=== PATIENT | female | born 1935 | race Caucasian/White ===

== ENCOUNTER 2021-07-16 07:11 | Outpatient (RCR) | payer MEDICARE, BC, SELFPAY ==
[2021-07-16] VITALS (10 sets, daily range): BP systolic 102–131; BP diastolic 45–92; PULSE 75–94; RESP 12–22; TEMP 36.2–36.4; O2SAT 94–100
[2021-07-16 07:55] LABS: Hematocrit 27.1 % (37.0-47.0); Hemoglobin 7.5 g/dL (12.0-15.0)
== END 2021-10-14 23:59 | disposition home or self-care (01) ==
LOC: ANHCPCTRAN 07:11
PROVIDERS: PCP Family Medicine; Visit Provider Nurse Practitioner Family
DX: D50.9 Iron deficiency anemia, unspecified (principal)
CPT/HCPCS: 36415; 36430; 85014; 85018; 86850; 86900; 86901; 86920; J7050; P9016

== ENCOUNTER 2023-07-08 15:30 | Inpatient (IN) | payer MEDICARE, SELFPAY ==
[2023-07-08] VITALS (29 sets, daily range): BP systolic 90–123; BP diastolic 51–97; PULSE 96–117; RESP 12–25; TEMP 36.1–36.2; O2SAT 94–100
--- NOTE | ~2023-07-08 | XR_ITS ---
EXAMINATION: XR barium swallow modified DATE: 07/12/2023 10:26 INDICATION: Choking. TECHNIQUE: The patient was given barium-containing material of multiple consistencies to swallow by t nancy speech pathologist while I performed fluoroscopy. Fluoroscopy exposure time was 2.4 minutes. The n umber of fluoroscopy images saved to the PACS was 1. Dose-area product was 1.538 Gy-cm^2. FINDINGS: There is reduced labial seal/lip tension. There is reduced lingual movement. There is reduced larynge al elevation and reduced tongue base retraction. There is laryngeal penetration with thin liquids and nectar thick liquids. IMPRESSION: 1. Laryngeal penetration with thin liquids and nectar thick liquids. 2. Please refer to the speech therapy report for recommendations. Reviewed, dictated and finalized at location A.
--- NOTE | ~2023-07-08 | CT_ITS ---
EXAMINATION: CT brain wo con DATE: 07/08/2023 17:44 INDICATION: Altered mental state. Weakness. TECHNIQUE: Computed tomography (CT) of the head was performed without intravenous contrast. The mA wa s adjusted according to patient size. Iterative reconstruction technique was employed. Exam dose: 60 5.33 mGy-cm total exam DLP. COMPARISON: None FINDINGS: There is central and cortical cerebral atrophy in addition to cerebellar atrophy. Prominent bilateral carotid siphon internal carotid artery calcifications. Lesser vertebral basilar a rterial calcification. There is nonspecific diminished attenuation of the cerebral white matter, which may be due to chronic small vessel ischemic changes. No intracranial mass lesion or hemorrhage, midline shift or mass effect. No subdural or epidural hematoma is detected. The included paranasal sinuses and mastoid air cells are normally developed and aerated. No fracture or bone destruction of the cranial vault. IMPRESSION: Cerebral and cerebellar atrophy Cerebral atherosclerosis and chronic small vessel ischemic changes of the cerebral white matter No skull fracture or acute intracranial finding Reviewed, dictated and finalized at Location [facility]. Reviewed, dictated and finalized at location A. IMPRESSION: Cerebral and cerebellar atrophy Cerebral atherosclerosis and chronic small vessel ischemic changes of the cereb ral white matter No skull fracture or acute intracranial finding
--- NOTE | ~2023-07-08 | MR_ITS ---
EXAMINATION: MR brain/brain stem wo con DATE: 07/12/2023 11:52 INDICATION: Dysphagia. TECHNIQUE: Magnetic resonance imaging (MRI) of the brain and brainstem was performed without intraven ous contrast. COMPARISON: Head CT 07/08/2023 FINDINGS: There are scattered areas of nonspecific increased T2-weighted signal intensity in the cere bral white matter and [place]. There is no intracranial hemorrhage, acute infarction, or abnormal intrac ranial mass lesion. The ventricles are normal in size. The mastoid air cells are normal. There is mil d mucosal thickening in the ethmoid sinuses. There are likely changes of ocular lens replacement surg eries. IMPRESSION: 1. Extensive nonspecific cerebral white matter disease and pontine disease, which likely represents c hronic small vessel ischemic disease. Reviewed, dictated and finalized at location A. IMPRESSION: 1. Extensive nonspecific cerebral white matter disease and pontine disease, whi ch likely represents chronic small vessel ischemic disease.
--- NOTE | ~2023-07-08 | XR_ITS ---
XR chest PICC line DATE: 07/08/2023 19:43 INDICATION: TECHNIQUE: PICC line placement COMPARISON: Portable AP chest on 07/08/2023 1923 hours FINDINGS: Intravenous catheter is noted in the right upper extremity, terminating near the right axil sen area. Normal heart size. Aortic calcification and mild unfolding. Mild bilateral pulmonary hyperinflation. No pulmonary infiltrate or consolidation or pleural effusion . Bilateral apical mild capping and calcification. No apparent pneumothorax. IMPRESSION: No active cardiopulmonary disease Aortic atherosclerosis Osteopenia Right upper extremity intravenous catheter Reviewed, dictated and finalized at [facility]. Reviewed, dictated and finalized at location A.
--- NOTE | 2023-07-08 15:54 | ECG_ITS ---
Measurements Intervals [place] Rate: 110 P: 70 MI: 168 QRS: 67 QRSD: 77 T: 77 QT: 326 QTc: 441 Interpretive Statements SINUS TACHYCARDIA DELAYED PRECORDIAL R/S TRANSITION BASELINE WANDER- V6 ABNORMAL ECG NO PREVIOUS ECG AVAILABLE FOR COMPARISON Electronically Signed On 07-08-2023 16:06:52 CDT by Neymar Russo D.O.
--- NOTE | 2023-07-08 16:22 | PC.NURSE ---
changed pt depends prior to straight cath and pt had scant dark stool with no blood visible. during straight cath intervention pt began having yellow liquid bowel movements that were then cleaned up. incontinence to bowel and bladder.
--- NOTE | 2023-07-08 16:31 | PC.NURSE ---
unable to gain iv access after multiple attempts. charge nurse uma gallagher called [facility] in phlebotomy to assist with iv attempt.
--- NOTE | 2023-07-08 16:48 | PC.NURSE ---
updated pt family member, Cath-niece, with permission from pt.
[2023-07-08 17:01] LABS: Appearance Urine Turbid (Clear); Bacteria Urine 4+ /hpf; Bilirubin Urine Negative (Negative); Blood Urine 2+ (Negative); Color Urine Yellow (Yellow); Glucose Urine UA Trace mg/dL (Negative); Ketones Urine Trace mg/dL (Negative); Leukocyte Esterase Ur 3+ LEU/UL (Negative); Need Manual Microscopic Reviewed; Nitrate Urine Negative (Negative); Non Pathogenic Casts >20; Protein Urine 3+ mg/dL (Negative); RBC Urine 21-50 /hpf (0-2); Specific Grav Ur 1.015 (1.001-1.035); Squamous Epithelial Cell Urine Many /hpf (Few); WBC Clumps Urine Present /HPF; WBC Urine >100 /hpf
[2023-07-08 17:02] LABS: Add Urine Microscopic? YES
--- NOTE | 2023-07-08 17:14 | ED.AMS ---
HPI - Altered Mental Status General Chief Complaint: Altered Mental Status Stated Complaint: AMS Time Seen by Provider: 07/08/23 15:40 History of Present Illness HPI narrative: 87-year-old female presented the emergency department for evaluation of altered mental status. Patient denies any complaints at this time. Patient was tachycardic on arrival. Related Data Home Medications Medication Instructions Recorded Confirmed B-complex with vitamin C 1 tablet PO DAILY 01/14/22 01/14/22 ascorbic acid (vitamin C) 500 mg 500 mg PO DAILY 01/14/22 01/14/22 capsule,extended release fenofibrate 54 mg tablet 54 mg PO DAILY 01/14/22 01/14/22 ferrous sulfate 325 mg (65 mg 325 mg PO BID 01/14/22 01/14/22 iron) tablet folic acid 1 mg tablet 1 mg PO DAILY 01/14/22 01/14/22 melatonin 3 mg capsule 3 mg PO QHS 01/14/22 01/14/22 metoclopramide HCl 10 mg tablet 10 mg PO Q6H PRN 01/14/22 01/14/22 metoprolol succinate 25 mg 12.5 mg PO BID 01/14/22 01/14/22 tablet,extended release 24 hr pantoprazole 40 mg tablet,delayed 40 mg PO QAM 01/14/22 01/14/22 release polyethylene glycol 3350 17 17 g PO DAILY 01/14/22 01/14/22 gram/dose oral powder pravastatin 80 mg tablet 80 mg PO DAILY 01/14/22 01/14/22 warfarin 2.5 mg tablet 2.5 mg PO 3XW 01/14/22 01/14/22 Allergies Allergy/AdvReac Type Severity Reaction Status Date / Time No Known Allergies Allergy Verified 01/14/22 10:49 Review of Systems Review of Systems: ROS unobtainable: Yes unobtainable due to medical condition PMFSH Past Medical History Medical History Bleeding on Coumadin Forgetfulness Frailty syndrome in geriatric patient Gastric ulcer History of gastrointestinal bleeding Social History Social History Smoking status: Never smoker Alcohol intake: never Substance use: never Exam Narrative: APPEARANCE: Well appearing, somnolent HEAD: normocephalic, atraumatic. EYES: PERRLA/EOMI, conjunctivae clear. NOSE: Normal no drainage EARS:TMS clear with good light reflex. THROAT: Pharynx clear, no exudate. NECK: Supple. No adenopathy, no masses. RESPIRATORY: Airway patent, respirations nonlabored. Clear to auscultation bilaterally, no rales, rhonchi, wheezing. CARDIOVASCULAR: Regular rate and rhythm without murmurs rubs or gallops. ABDOMINAL: Soft, nontender, nondistended, normal bowel sounds MUSCULOSKELETAL: Moves all extremities. Strength/ROM intact, No edema, No calf tenderness. NEURO: Alert. Cranial nerves II through XII intact. Grossly intact SKIN: Warm, dry. Normal Color Course Course Emergency Course: 87-year-old female presented to ED for evaluation of altered mental status. Patient's head CT showed no acute findings. Patient was afebrile with no leukocytosis and a stable hemoglobin. No significant abnormalities on her CMP UA was significant for urinary tract infection and patient was started on IV Rocephin. Patient influenza RSV and COVID was negative. Patient had difficulty getting IV access but we were able to have a midline established. Case was discussed with the hospitalist patient was accepted for admission. Vital Signs Vital signs: Vital Signs Pulse Rate 112 H 07/08/23 15:32 Respiratory Rate 19 07/08/23 15:32 Blood Pressure 118/65 07/08/23 15:32 Pulse Oximetry 98 07/08/23 15:32 Oxygen Delivery Room Air 07/08/23 15:32 Temperature 97.0 F L 07/08/23 15:52 Pulse Rate 106 H 07/08/23 18:28 Respiratory Rate 13 07/08/23 18:28 Blood Pressure 123/65 07/08/23 18:28 Pulse Oximetry 98 07/08/23 18:28 Oxygen Delivery Room Air 07/08/23 16:42 MDM - Altered Mental Status Differential Diagnosis Differential diagnosis: Likely altered mental status, delirium, dementia, hypoglycemia and subarachnoid hemorrhage Lab Data Attestation: I reviewed the patient's lab results. 07/08/23 17:34 07/08/23 17
[2023-07-08 17:42] LABS: Basophils Percent Auto 0.4 % (0.2-1.2); Eosinophils Absolute Auto 0.1 K/mm3 (0-0.3); Eosinophils Percent Auto 0.7 % (0-4.4); Hematocrit 36.6 % (37.0-47.0); Hemoglobin 12.2 g/dL (12.0-15.0); Immature Granulocyte Absolute 0.03 K/mm3 (0.00-0.031); Immature Granulocyte Percent A 0.3 % (0-0.5); Lymphocytes Absolute Auto 1.97 K/mm3 (0.9-3.2); Lymphocytes Percent Auto 20.6 % (18.3-44.2); Mean Corpuscular HGB Conc 33.3 g/dl (32-36); Mean Corpuscular Hemoglobin 30.5 pg (26-34); Mean Corpuscular Volume 91.5 fl (80-100); Monocytes Absolute Auto 1.6 K/mm3 (0.1-0.6); Monocytes Percent Auto 17.1 % (2.6-8.5); Neutrophils Absolute Auto 5.8 K/mm3 (1.3-6.7); Neutrophils Percent Auto 60.9 % (45.5-73.1); Platelet Count Result 274 k/mm3 (150-375); Red Cell Distribution Width 15.3 % (11.5-14.5); White Blood Count 9.6 K/mm3 (4.5-10.0)
[2023-07-08 17:51] LABS: Alanine Aminotransferase 9 U/L (6-35); Albumin Level 2.5 g/dL (3.5-5.1); Alkaline Phosphatase 76 U/L (38-126); Anion Gap 4 mmol/L (8-16); Aspartate Amino Transferase 20 U/L (14-36); Bilirubin,Total 0.6 mg/dL (0.2-1.3); Blood Urea Nitrogen 11 mg/dL (7-17); Calcium 7.9 mg/dL (8.4-10.2); Carbon Dioxide 23 mmol/L (22-30); Chloride 101 mmol/L (98-107); Estimated CRCL calculation 47 ml/min; Estimated Glomerular Filt Rate > 60; Glucose 82 mg/dL (65-110); Potassium 3.9 mmol/L (3.4-5.0); Sodium 128 mmol/L (137-145)
[2023-07-08 17:53] LABS: INR 3.4; Prothrombin Time 37.2 Seconds (11.1-14.7)
[2023-07-08 17:54] LABS: Partial Thromboplastin Time 63.6 SECONDS (22.3-36.8)
[2023-07-08 18:13] LABS: Influenza A QL RT-PCR Negative (Negative); Influenza B QL RT-PCR Negative (Negative); RSV RNA, RT-PCR Negative (Negative); SARS-CoV-2 RNA PCR Negative (Negative)
[2023-07-08 18:25] LABS: Lactic Acid Reflex 1.9 mmol/L (0.7-2.0)
--- NOTE | 2023-07-08 18:39 | PC.NURSE ---
YANICK steele looking for midline access @[id number].
--- NOTE | 2023-07-08 19:09 | PM.IMHP ---
H&P: HPI History of Present Illness Date/Time: 07/08/23 19:09 Chief Complaint: Mental Status Change Narrative: Patient was seen in the emergency room. 87 years old female was admitted through the emergency room with complaints of a mental status change. Patient was sent from detention for the evaluation of mental status change. Patient is slightly confused otherwise denies shortness of breath and chest pain. Patient plan of having generalized weakness. No abdominal pain, nausea, no vomiting. Mood stable. In the ER PICC line was placed. Blood and urine culture were ordered. IV ceftriaxone started. Patient was transferred for further evaluation treatment. Review of Systems Review of Systems: All systems reviewed & are unremarkable except as noted in HPI and below Constitutional: Comments: the history and physical exam. [facility] Past Medical History Medical History Bleeding on Coumadin Forgetfulness Frailty syndrome in geriatric patient Gastric ulcer History of gastrointestinal bleeding Family History Family History (Updated 07/08/23 @ 20:50 by Gabbie Wilson RN) Other Unknown family medical history Social History Social History Smoking status: Never smoker Second hand tobacco smoke exposure: No Alcohol intake: never Substance use: never Lack of Transportation: No Lack of Food: Never True Current Housing: I Have Housing Concerned About Future Housing: No Difficulty Paying Gas/Electric Bills: No Difficulty Paying for Meds: No Currently Unemployed: No Education: High School Diploma/GED Difficulty w/ Childcare or Family Care: No Spiritual care concerns: No Meds Home Medications and Allergies Home Medications Medication Instructions Recorded Confirmed Type B-complex with vitamin C 1 tablet PO DAILY 01/14/22 07/08/23 History ascorbic acid (vitamin C) 500 mg 500 mg PO DAILY 01/14/22 07/08/23 History capsule,extended release fenofibrate 54 mg tablet 54 mg PO DAILY 01/14/22 07/08/23 History ferrous sulfate 325 mg (65 mg 325 mg PO BID 01/14/22 07/08/23 History iron) tablet folic acid 1 mg tablet 1 mg PO DAILY 01/14/22 07/08/23 History melatonin 3 mg capsule 5 mg PO QHS 01/14/22 07/08/23 History metoclopramide HCl 10 mg tablet 10 mg PO Q6H PRN Acid Reflux 01/14/22 07/08/23 History metoprolol succinate 25 mg 12.5 mg PO BID 01/14/22 07/08/23 History tablet,extended release 24 hr pantoprazole 40 mg tablet,delayed 40 mg PO QAM 01/14/22 07/08/23 History release polyethylene glycol 3350 17 17 g PO DAILY 01/14/22 07/08/23 History gram/dose oral powder pravastatin 80 mg tablet 80 mg PO DAILY 01/14/22 07/08/23 History acetaminophen 325 mg tablet 650 mg PO Q6H PRN Pain (Scale 07/08/23 07/08/23 History (Tylenol) Score 1-3) calcium carbonate 500 mg calcium 500 mg PO DAILY 07/08/23 07/08/23 History (1,250 mg) tablet carbidopa 25 mg-levodopa 100 mg 1 tablet PO TID 07/08/23 07/08/23 History tablet nystatin 100,000 unit/gram topical 1 applic topical BID 07/08/23 07/08/23 History powder (Nystop) ondansetron 4 mg disintegrating 4 mg PO Q6H PRN Nausea And Vomiting 07/08/23 07/08/23 History tablet potassium chloride 20 mEq 20 meq PO DAILY 07/08/23 07/08/23 History tablet,extended release warfarin 1 mg tablet (Jantoven) 1 mg PO DAILY 07/08/23 07/08/23 History Allergies Allergy/AdvReac Type Severity Reaction Status Date / Time No Known Allergies Allergy Verified 01/14/22 10:49 Vital Signs Vital Signs - 24 hr 07/08/23 15:32 07/08/23 15:38 07/08/23 15:39 Temperature Pulse Rate 112 H 117 H 115 H Respiratory Rate 19 20 17 Blood Pressure 118/65 118/65 Pulse Oximetry 98 Oxygen Delivery Room Air 07/08/23 15:45 07/08/23 15:52 07/08/23 15:46 Temperature 36.1 C L Pulse Rate 114 H 113 H Respiratory Rate 18 18 Blood Pressu
--- NOTE | 2023-07-08 19:10 | PC.NURSE ---
pt care and report given to YANICK Ruano. all questions answered.
[2023-07-08 19:44] LABS: Basophils Percent Auto 0.4 % (0.2-1.2); Eosinophils Absolute Auto 0.1 K/mm3 (0-0.3); Eosinophils Percent Auto 0.5 % (0-4.4); Hematocrit 37.8 % (37.0-47.0); Immature Granulocyte Absolute 0.05 K/mm3 (0.00-0.031); Immature Granulocyte Percent A 0.5 % (0-0.5); Lymphocytes Absolute Auto 2.07 K/mm3 (0.9-3.2); Lymphocytes Percent Auto 21.7 % (18.3-44.2); Mean Corpuscular HGB Conc 31.7 g/dl (32-36); Mean Corpuscular Hemoglobin 29.9 pg (26-34); Mean Platelet Volume 9.1 fl (7.4-10.4); Monocytes Absolute Auto 1.8 K/mm3 (0.1-0.6); Monocytes Percent Auto 18.6 % (2.6-8.5); Neutrophils Absolute Auto 5.6 K/mm3 (1.3-6.7); Neutrophils Percent Auto 58.3 % (45.5-73.1); Platelet Count Result 301 k/mm3 (150-375); Red Blood Count 4.02 M/mm3 (4.2-5.4); Red Cell Distribution Width 15.4 % (11.5-14.5); White Blood Count 9.5 K/mm3 (4.5-10.0)
[2023-07-08 19:56] LABS: INR 3.4; Prothrombin Time 37.5 Seconds (11.1-14.7)
[2023-07-08 20:08] LABS: Alanine Aminotransferase 10 U/L (6-35); Albumin Level 2.5 g/dL (3.5-5.1); Alkaline Phosphatase 79 U/L (38-126); Anion Gap 5 mmol/L (8-16); Aspartate Amino Transferase 21 U/L (14-36); Bilirubin,Total 0.8 mg/dL (0.2-1.3); Blood Urea Nitrogen 11 mg/dL (7-17); Calcium 8.1 mg/dL (8.4-10.2); Carbon Dioxide 27 mmol/L (22-30); Chloride 100 mmol/L (98-107); Estimated CRCL calculation 47 ml/min; Estimated Glomerular Filt Rate > 60; Glucose 83 mg/dL (65-110); Potassium 3.9 mmol/L (3.4-5.0); Sodium 132 mmol/L (137-145)
[2023-07-08] MEDS: LIDOCAINE HCL 1% LOCAL INJ 2 ML AMPUL 5 ML INFILTRATE (20:10)
--- NOTE | 2023-07-08 20:51 | ADMGEN ---
This patient, Cristina Mathis, was admitted to Medical Room 245-. Patient/family oriented to hospital policies and general routines including ID bracelet, bed and alarms, visiting hours, pain management, procedures, bathroom and other care routines, personal items, smoking policy, room service/diet, and visiting hours. Information on how to activate the Rapid Response Team has been discussed. Patient/Family are encouraged to report perceived risks to care and to ask questions if they do not understand what they are told or what they should do.
[2023-07-08] MEDS: SODIUM CHLORIDE 0.9% IV 1,000 ML 100 ML IV CONT (21:49)
[2023-07-08] MEDS: SALINE LOCK FLUSH 10 ML IV PUSH (21:50)
[2023-07-09 04:26] VITALS: BP 110/72; PULSE 105; RESP 18; TEMP 36.6; O2SAT 96
[2023-07-09] MEDS: SALINE LOCK FLUSH 20 ML IV PUSH (04:53)
[2023-07-09] MEDS: SALINE LOCK FLUSH 10 ML IV PUSH ×3 (04:53→22:50)
[2023-07-09 04:54] LABS: Basophils Percent Auto 0.3 % (0.2-1.2); Eosinophils Absolute Auto 0.1 K/mm3 (0-0.3); Eosinophils Percent Auto 0.5 % (0-4.4); Hematocrit 34.2 % (37.0-47.0); Hemoglobin 11.2 g/dL (12.0-15.0); Immature Granulocyte Absolute 0.04 K/mm3 (0.00-0.031); Immature Granulocyte Percent A 0.4 % (0-0.5); Lymphocytes Absolute Auto 1.44 K/mm3 (0.9-3.2); Lymphocytes Percent Auto 15.7 % (18.3-44.2); Mean Corpuscular HGB Conc 32.7 g/dl (32-36); Mean Corpuscular Hemoglobin 30.3 pg (26-34); Mean Corpuscular Volume 92.4 fl (80-100); Mean Platelet Volume 8.9 fl (7.4-10.4); Monocytes Absolute Auto 1.4 K/mm3 (0.1-0.6); Monocytes Percent Auto 15.6 % (2.6-8.5); Neutrophils Absolute Auto 6.2 K/mm3 (1.3-6.7); Neutrophils Percent Auto 67.5 % (45.5-73.1); Platelet Count Result 245 k/mm3 (150-375); Red Cell Distribution Width 15.3 % (11.5-14.5); White Blood Count 9.2 K/mm3 (4.5-10.0)
[2023-07-09 05:05] LABS: Alanine Aminotransferase 13 U/L (6-35); Albumin Level 2.2 g/dL (3.5-5.1); Alkaline Phosphatase 67 U/L (38-126); Anion Gap 3 mmol/L (8-16); Aspartate Amino Transferase 21 U/L (14-36); Bilirubin,Total 0.6 mg/dL (0.2-1.3); Blood Urea Nitrogen 10 mg/dL (7-17); Calcium 7.5 mg/dL (8.4-10.2); Carbon Dioxide 25 mmol/L (22-30); Chloride 104 mmol/L (98-107); Estimated CRCL calculation 51 ml/min; Estimated Glomerular Filt Rate > 60; Glucose 86 mg/dL (65-110); Potassium 3.7 mmol/L (3.4-5.0); Sodium 132 mmol/L (137-145)
[2023-07-09 05:23] LABS: INR 3.4
[2023-07-09] MEDS: SODIUM CHLORIDE 0.9% IV 1,000 ML 100 ML IV CONT ×2 (08:05→18:10)
--- NOTE | 2023-07-09 08:05 | PC.NURSE ---
Called hospitalist @ 0528 pt did not urinate during the shift and on bladder scanner had 177 cc. Pt is on maintenance fluids, however did not have much oral intake. Provider ordered to straight cath pt. Straight cath attempted approx. around 0620. Multiple attempts done with assistance of charger tester and no success. Information passed onto day RN assuming care of pt.
[2023-07-09 10:25] VITALS: BP 124/60; PULSE 78; RESP 16
[2023-07-09 10:27] VITALS: PULSE 76
[2023-07-09] MEDS: METOPROLOL SUCCINATE EXT REL 25 MG TABCR PO (10:27)
[2023-07-09] MEDS: PANTOPRAZOLE 40 MG TABLET PO (10:27)
--- NOTE | 2023-07-09 10:48 | PM.IMPN ---
Progress Note: A&P Assessment and Plan (1) Acute UTI: Code(s): N39.0 - Urinary tract infection, site not specified Status: Acute Assessment and Plan: Blood culture urine culture and IV antibiotics. (2) AMS (altered mental status): Code(s): R41.82 - Altered mental status, unspecified Status: Acute Assessment and Plan: CT head is negative. Will treat UTI and monitor closely (3) Gastric ulcer: Code(s): K25.9 - Gastric ulcer, unspecified as acute or chronic, without hemorrhage or perforation Status: Acute Assessment and Plan: Continue with H2 blockers and monitor hemoglobin. (4) Hyponatremia: Code(s): E87.1 - Hypo-osmolality and hyponatremia Status: Acute Assessment and Plan: Will give IV fluids and monitor sodium closely. (5) Parkinson disease: Code(s): G20 - Parkinson's disease Status: Acute Assessment and Plan: Stable on current meds, will continue current treatment (6) Long-term (current) use of anticoagulants, INR goal 2.0-3.0: Code(s): Z79.01 - intermediate card tender (current) use of anticoagulants Status: Acute Assessment and Plan: INR is high,, will hold coumadin Monitor closely. Subjective Date/time seen: 07/09/23 10:48 Interval history: Patient was seen during the morning rounds today. More alert. No sob or chest pain. No abdominal pain or nausea. Mood stable. Review of Systems Review of Systems: All systems reviewed & are unremarkable except as noted in HPI and below (the history and physical exam) Exam Narrative: APPEARANCE: Well appearing, no pain, no distress, well-nourished. HEAD: normocephalic, atraumatic. EYES: PERRLA/EOMI, conjunctivae clear. NOSE: Normal no drainage EARS:TMS clear with good light reflex. THROAT: Pharynx clear, no exudate. NECK: Supple. No adenopathy, no masses. RESPIRATORY: Airway patent, respirations nonlabored. Clear to auscultation bilaterally, no rales, rhonchi, wheezing. CARDIOVASCULAR: Sinus tachycardia ABDOMINAL: Soft, nontender, nondistended, normal bowel sounds MUSCULOSKELETAL: Moves all extremities. Strength/ROM intact, No edema, No calf tenderness. Does not walk. Mild tremors NEURO: Alert. Cranial nerves II through XII intact.? Grossly intact SKIN: Warm, dry. Normal Color Objective Data Vital Signs Vital Signs: Vital Signs - 24 hr 07/08/23 15:32 07/08/23 15:38 07/08/23 15:39 Temperature Pulse Rate 112 H 117 H 115 H Respiratory Rate 19 20 17 Blood Pressure 118/65 118/65 Pulse Oximetry 98 Oxygen Delivery Room Air 07/08/23 15:45 07/08/23 15:52 07/08/23 15:46 Temperature 36.1 C L Pulse Rate 114 H 113 H Respiratory Rate 18 18 Blood Pressure 100/62 Pulse Oximetry 98 Oxygen Delivery 07/08/23 16:00 07/08/23 16:01 07/08/23 16:15 Temperature Pulse Rate 111 H 113 H 111 H Respiratory Rate 16 25 H 17 Blood Pressure 96/60 L Pulse Oximetry 99 Oxygen Delivery 07/08/23 16:17 07/08/23 16:18 07/08/23 16:42 Temperature Pulse Rate 110 H 109 H Respiratory Rate 19 15 Blood Pressure 90/51 L Pulse Oximetry 98 Oxygen Delivery Room Air 07/08/23 16:52 07/08/23 16:19 07/08/23 16:30 Temperature Pulse Rate 102 H 109 H 107 H Respiratory Rate 16 16 14 Blood Pressure 106/63 Pulse Oximetry 98 94 Oxygen Delivery 07/08/23 16:35 07/08/23 16:45 07/08/23 16:53 Temperature Pulse Rate 108 H 102 H 101 H Respiratory Rate 14 13 16 Blood Pressure 100/61 106/63 Pulse Oximetry Oxygen Delivery 07/08/23 17:00 07/08/23 17:01 07/08/23 17:15 Temperature Pulse Rate 99 96 98 Respiratory Rate 14 12 15 Blood Pressure 102/60 Pulse Oximetry Oxygen Delivery 07/08/23 17:30 07/08/23 17:50 07/08/23 18:00 Temperature Pulse Rate 102 H 103 H 105 H Respiratory Rate 14 13 15 Blood Pressure Pulse Oximetry Oxygen Delivery 07/08/23 18:15 07/08/23 18:28 07/08/23 20:12
[2023-07-09 14:26] VITALS: BP 131/67; PULSE 93; RESP 16; TEMP 36.5; O2SAT 99
[2023-07-09] MEDS: FOLIC ACID 1 MG TABLET PO (14:34)
[2023-07-09] MEDS: POTASSIUM CHLORIDE 20 MEQ ER TABLET PO (14:34)
[2023-07-09] MEDS: PRAVASTATIN SODIUM 20 MG TABLET 80 MG PO (14:34)
[2023-07-09] MEDS: CARBIDOPA/LEVODOPA 25/100 MG TABLET 1 TABLET PO ×2 (14:34→18:10)
[2023-07-09] MEDS: polyethylene glycoL 3350 17 GM POWD.PACK PO (14:35)
[2023-07-09] MEDS: VITAMIN B COMPLEX/VIT C CAPSULE 1 EACH PO (14:35)
[2023-07-09] MEDS: CALCIUM CARBONATE (OSCAL) 500 MG TABLET PO (14:35)
[2023-07-09] MEDS: ASCORBIC ACID 500 MG TABLET PO (14:35)
[2023-07-09] MEDS: ACETAMINOPHEN 325 MG TABLET 650 MG PO (14:35)
[2023-07-09] MEDS: FERROUS SULFATE 325 MG TABLET DR PO (18:10)
[2023-07-09 20:09] VITALS: BP 107/55; PULSE 92; RESP 14; TEMP 36.8; O2SAT 98
[2023-07-09] MEDS: MELATONIN 5 MG TABLET PO (22:49)
[2023-07-09] MEDS: TOLNAFTATE 1% POWDER 45 GM BTL 1 APPLIC TOPICAL (22:49)
[2023-07-10 05:32] VITALS: BP 125/79; PULSE 86; RESP 16; TEMP 36.5; O2SAT 95
[2023-07-10] MEDS: SODIUM CHLORIDE 0.9% IV 1,000 ML 100 ML IV CONT ×2 (05:35→17:19)
[2023-07-10] MEDS: SALINE LOCK FLUSH 20 ML IV PUSH (05:45)
[2023-07-10] MEDS: SALINE LOCK FLUSH 10 ML IV PUSH ×3 (05:45→20:19)
[2023-07-10 06:05] LABS: INR 2.8
[2023-07-10] MEDS: CARBIDOPA/LEVODOPA 25/100 MG TABLET 1 TABLET PO ×3 (09:18→17:19)
[2023-07-10] MEDS: FENOFIBRATE,MICRONIZED 48 MG TABLET PO (09:18)
[2023-07-10] MEDS: PANTOPRAZOLE 40 MG TABLET PO (09:19)
[2023-07-10] MEDS: FERROUS SULFATE 325 MG TABLET DR PO ×2 (09:19→17:19)
[2023-07-10 09:20] VITALS: PULSE 86
[2023-07-10] MEDS: FOLIC ACID 1 MG TABLET PO (09:20)
[2023-07-10] MEDS: polyethylene glycoL 3350 17 GM POWD.PACK PO (09:20)
[2023-07-10] MEDS: PRAVASTATIN SODIUM 20 MG TABLET 80 MG PO (09:20)
[2023-07-10] MEDS: CALCIUM CARBONATE (OSCAL) 500 MG TABLET PO (09:20)
[2023-07-10] MEDS: POTASSIUM CHLORIDE 20 MEQ ER TABLET PO (09:20)
[2023-07-10] MEDS: ASCORBIC ACID 500 MG TABLET PO (09:20)
[2023-07-10] MEDS: METOPROLOL SUCCINATE EXT REL 25 MG TABCR PO (09:20)
[2023-07-10] MEDS: VITAMIN B COMPLEX/VIT C CAPSULE 1 EACH PO (09:21)
[2023-07-10] MEDS: TOLNAFTATE 1% POWDER 45 GM BTL 1 APPLIC TOPICAL ×2 (09:21→20:19)
--- NOTE | 2023-07-10 11:24 | PM.IMPN ---
Progress Note: A&P Assessment and Plan (1) Acute UTI: Code(s): N39.0 - Urinary tract infection, site not specified Status: Acute Assessment and Plan: Blood culture urine culture and IV antibiotics. (2) AMS (altered mental status): Code(s): R41.82 - Altered mental status, unspecified Status: Acute Assessment and Plan: CT head is negative. Will treat UTI and monitor closely (3) Gastric ulcer: Code(s): K25.9 - Gastric ulcer, unspecified as acute or chronic, without hemorrhage or perforation Status: Acute Assessment and Plan: Continue with H2 blockers and monitor hemoglobin. (4) Hyponatremia: Code(s): E87.1 - Hypo-osmolality and hyponatremia Status: Acute Assessment and Plan: Will give IV fluids and monitor sodium closely. (5) Parkinson disease: Code(s): G20 - Parkinson's disease Status: Acute Assessment and Plan: Stable on current meds, will continue current treatment (6) Long-term (current) use of anticoagulants, INR goal 2.0-3.0: Code(s): Z79.01 - intermediate accountant (current) use of anticoagulants Status: Acute Assessment and Plan: INR is high,, will hold coumadin Monitor closely. Subjective Date/time seen: 07/10/23 11:24 Interval history: Patient was seen during the morning rounds today. More alert. No new overnight complaints No sob or chest pain. No abdominal pain or nausea. Mood stable. Review of Systems Review of Systems: All systems reviewed & are unremarkable except as noted in HPI and below (the history and physical exam) Exam Narrative: APPEARANCE: Well appearing, no pain, no distress, well-nourished. HEAD: normocephalic, atraumatic. EYES: PERRLA/EOMI, conjunctivae clear. NOSE: Normal no drainage EARS:TMS clear with good light reflex. THROAT: Pharynx clear, no exudate. NECK: Supple. No adenopathy, no masses. RESPIRATORY: Airway patent, respirations nonlabored. Clear to auscultation bilaterally, no rales, rhonchi, wheezing. CARDIOVASCULAR: Sinus tachycardia ABDOMINAL: Soft, nontender, nondistended, normal bowel sounds MUSCULOSKELETAL: Moves all extremities. Strength/ROM intact, No edema, No calf tenderness. Does not walk. Mild tremors NEURO: Alert. Cranial nerves II through XII intact.? Grossly intact SKIN: Warm, dry. Normal Color Objective Data Vital Signs Vital Signs: Vital Signs - 24 hr 07/09/23 14:26 07/09/23 20:09 07/09/23 22:30 Temperature 36.5 C 36.8 C Pulse Rate 93 92 Respiratory Rate 16 14 Blood Pressure 131/67 107/55 L Pulse Oximetry 99 98 Oxygen Delivery Room Air 07/10/23 05:32 07/10/23 09:20 Temperature 36.5 C Pulse Rate 86 86 Respiratory Rate 16 Blood Pressure 125/79 Pulse Oximetry 95 Oxygen Delivery Intake/Output Intake/Output: Intake & Output 07/07/23 07/08/23 07/09/23 07/10/23 23:59 23:59 23:59 23:59 Intake Total 50 2510 1320 Output Total 30 0 Balance 20 2510 1320 Meds/Results Medications: Active Medications Generic Name Dose Route Start Last Admin Trade Name Freq PRN Reason Stop Dose Admin Acetaminophen 650 mg 07/09/23 10:45 07/09/23 14:35 Acetaminophen 325 Mg Tablet PO 650 mg Q6H PRN Administration Pain (Scale Score 1-3) Ascorbic Acid 500 mg 07/09/23 12:00 07/10/23 09:20 Ascorbic Acid 500 Mg Tablet PO 500 mg DAILY TERI Administration Calcium Carbonate 500 mg 07/09/23 12:00 07/10/23 09:20 Calcium Carbonate (Oscal) 500 Mg Tablet PO 500 mg DAILY TERI Administration Carbidopa/Levodopa 1 tablet 07/09/23 13:00 07/10/23 09:18 Carbidopa/Levodopa 25/100 Mg Tablet PO 1 tablet TID TERI Administration Fenofibrate 48 mg 07/10/23 09:00 07/10/23 09:18 Fenofibrate,Micronized 48 Mg Tablet PO 48 mg DAILY TERI Administration Ferrous Sulfate 325 mg 07/09/23 17:00 07/10/23 09:19 Ferrous Sulfate [address] PO 325 mg BID TERI Administration Folic Acid 1
[2023-07-10 14:20] VITALS: BP 108/61; PULSE 97; RESP 16; TEMP 36; O2SAT 95
[2023-07-10 20:12] VITALS: BP 108/56; PULSE 87; RESP 18; TEMP 36.3; O2SAT 100
[2023-07-10] MEDS: WARFARIN (*PBKC) 1 MG TABLET PO (20:19)
[2023-07-10] MEDS: MELATONIN 5 MG TABLET PO (20:19)
[2023-07-11] MEDS: SODIUM CHLORIDE 0.9% IV 1,000 ML 100 ML IV CONT ×2 (03:12→13:10)
[2023-07-11] MEDS: SALINE LOCK FLUSH 20 ML IV PUSH (05:32)
[2023-07-11] MEDS: SALINE LOCK FLUSH 10 ML IV PUSH ×2 (05:32→13:01)
[2023-07-11 06:00] VITALS: BP 92/36; PULSE 83; RESP 18; TEMP 36.6; O2SAT 100
[2023-07-11 06:41] LABS: INR 2.5; Prothrombin Time 28.6 Seconds (11.1-14.7)
[2023-07-11 07:47] LABS: Hematocrit 34.2 % (37.0-47.0); Mean Corpuscular HGB Conc 32.2 g/dl (32-36); Mean Corpuscular Hemoglobin 30.7 pg (26-34); Mean Corpuscular Volume 95.5 fl (80-100); Mean Platelet Volume 10.3 fl (7.4-10.4); Platelet Count Result 252 k/mm3 (150-375); Red Blood Count 3.58 M/mm3 (4.2-5.4); Red Cell Distribution Width 15.5 % (11.5-14.5); White Blood Count 5.7 K/mm3 (4.5-10.0)
[2023-07-11 07:54] LABS: Alanine Aminotransferase 15 U/L (6-35); Albumin Level 1.9 g/dL (3.5-5.1); Alkaline Phosphatase 61 U/L (38-126); Anion Gap 3 mmol/L (8-16); Aspartate Amino Transferase 35 U/L (14-36); Bilirubin,Total 0.4 mg/dL (0.2-1.3); Blood Urea Nitrogen 5 mg/dL (7-17); Calcium 7.4 mg/dL (8.4-10.2); Carbon Dioxide 24 mmol/L (22-30); Chloride 106 mmol/L (98-107); Estimated CRCL calculation 51 ml/min; Estimated Glomerular Filt Rate > 60; Glucose 68 mg/dL (65-110); Potassium 3.4 mmol/L (3.4-5.0); Sodium 133 mmol/L (137-145)
[2023-07-11] MEDS: VITAMIN B COMPLEX/VIT C CAPSULE 1 EACH PO (08:44)
[2023-07-11] MEDS: FOLIC ACID 1 MG TABLET PO (08:44)
[2023-07-11] MEDS: polyethylene glycoL 3350 17 GM POWD.PACK PO (08:44)
[2023-07-11] MEDS: POTASSIUM CHLORIDE 20 MEQ ER TABLET PO (08:44)
[2023-07-11] MEDS: PRAVASTATIN SODIUM 20 MG TABLET 80 MG PO (08:44)
[2023-07-11] MEDS: FENOFIBRATE,MICRONIZED 48 MG TABLET PO (08:44)
[2023-07-11] MEDS: PANTOPRAZOLE 40 MG TABLET PO (08:44)
[2023-07-11] MEDS: METOPROLOL SUCCINATE EXT REL 25 MG TABCR PO (08:45)
[2023-07-11] MEDS: TOLNAFTATE 1% POWDER 45 GM BTL 1 APPLIC TOPICAL ×2 (08:45→21:01)
[2023-07-11] MEDS: CARBIDOPA/LEVODOPA 25/100 MG TABLET 1 TABLET PO ×2 (08:45→13:01)
[2023-07-11] MEDS: ASCORBIC ACID 500 MG TABLET PO (08:45)
[2023-07-11] MEDS: FERROUS SULFATE 325 MG TABLET DR PO (08:45)
[2023-07-11] MEDS: CALCIUM CARBONATE (OSCAL) 500 MG TABLET PO (08:45)
[2023-07-11 08:55] VITALS: BP 119/79; PULSE 87; RESP 18; TEMP 36.5; O2SAT 99
--- NOTE | 2023-07-11 12:41 | PM.IMPN ---
Progress Note: A&P Assessment and Plan (1) Acute UTI: Code(s): N39.0 - Urinary tract infection, site not specified Status: Acute Assessment and Plan: Blood culture urine culture and IV antibiotics. (2) AMS (altered mental status): Code(s): R41.82 - Altered mental status, unspecified Status: Acute Assessment and Plan: CT head is negative. Will treat UTI and monitor closely. Mental status appears to be waxing and waning and when she is asleep her mouth is wide open. (3) Gastric ulcer: Code(s): K25.9 - Gastric ulcer, unspecified as acute or chronic, without hemorrhage or perforation Status: Acute Assessment and Plan: Continue with H2 blockers and monitor hemoglobin. (4) Hyponatremia: Code(s): E87.1 - Hypo-osmolality and hyponatremia Status: Acute Assessment and Plan: Will give IV fluids and monitor sodium closely. (5) Parkinson disease: Code(s): G20 - Parkinson's disease Status: Acute Assessment and Plan: Stable on current meds, will continue current treatment (6) Long-term (current) use of anticoagulants, INR goal 2.0-3.0: Code(s): Z79.01 - [facility] (current) use of anticoagulants Status: Acute Assessment and Plan: INR at goal. Continue warfarin Plan Speech therapy bedside swallow study ordered, will consider discharge once ST places recommendations, patient [facility] Time Spent With Patient Time with patient: 25 - 35 minutes Subjective Date/time seen: 07/11/23 12:41 Interval history: Patient was seen during the morning rounds today. RN reports that patient seemed to have minor choking episode with taking medications. Bedside speech therapy swallow exam ordered No sob or chest pain. No abdominal pain or nausea. Patient complained she did not like the food Will obtain bedside swallow study and consider discharge tomorrow Review of Systems Review of Systems: All systems reviewed & are unremarkable except as noted in HPI and below (the history and physical exam) Exam Narrative: APPEARANCE: Well appearing, no pain, no distress, well-nourished. HEAD: normocephalic, atraumatic. EYES: PERRLA/EOMI, conjunctivae clear. NOSE: Normal no drainage THROAT: Pharynx clear, no exudate. NECK: Supple. No adenopathy, no masses. RESPIRATORY: Airway patent, respirations nonlabored. Clear to auscultation bilaterally, no rales, rhonchi, wheezing. CARDIOVASCULAR: Sinus tachycardia ABDOMINAL: Soft, nontender, nondistended, normal bowel sounds MUSCULOSKELETAL: Moves all extremities. Strength/ROM intact, No edema, No calf tenderness. Does not walk. Mild tremors NEURO: Alert. Cranial nerves II through XII intact.? Grossly intact SKIN: Warm, dry. Normal Color Objective Data Vital Signs Vital Signs: Vital Signs - 24 hr 07/10/23 14:20 07/10/23 20:12 07/11/23 06:00 Temperature 36.0 C L 36.3 C L 36.6 C Pulse Rate 97 87 83 Respiratory Rate 16 18 18 Blood Pressure 108/61 108/56 L 92/36 L Pulse Oximetry 95 100 100 07/11/23 08:55 Temperature 36.5 C Pulse Rate 87 Respiratory Rate 18 Blood Pressure 119/79 Pulse Oximetry 99 Intake/Output Intake/Output: Intake & Output 07/08/23 07/09/23 07/10/23 07/11/23 23:59 23:59 23:59 23:59 Intake Total 50 2510 2560 1120 Output Total 30 0 300 1260 Balance 20 2510 2260 -140 Meds/Results Medications: Active Medications Generic Name Dose Route Start Last Admin Trade Name Amadoq PRN Reason Stop Dose Admin Acetaminophen 650 mg 07/09/23 10:45 07/09/23 14:35 Acetaminophen 325 Mg Tablet PO 650 mg Q6H PRN Administration Pain (Scale Score 1-3) Ascorbic Acid 500 mg 07/09/23 12:00 07/11/23 08:45 Ascorbic Acid 500 Mg Tablet PO 500 mg DAILY TERI Administration Calcium Carbonate 500 mg 07/09/23 12:00 07/11/23 08:45 Calcium Carbonate (Oscal) 500 Mg Tablet PO 500 mg DAILY TERI Administration Carbidopa/
[2023-07-11 13:27] VITALS: BP 135/80; PULSE 92; RESP 16; TEMP 36.4; O2SAT 95
--- NOTE | 2023-07-11 15:08 | PCSTNOTE ---
Please refer to the Bedside Swallow Evaluation in the EMR. Please note, silent aspiration cannot be ruled out at bedside.
[2023-07-11 19:58] VITALS: BP 133/68; PULSE 86; RESP 18; TEMP 36.4; O2SAT 97
[2023-07-12] MEDS: SODIUM CHLORIDE 0.9% IV 1,000 ML 100 ML IV CONT ×2 (00:57→17:20)
[2023-07-12 06:00] VITALS: BP 139/83; PULSE 92; RESP 18; TEMP 36.3; O2SAT 90
[2023-07-12 06:16] LABS: Hematocrit 37.1 % (37.0-47.0); Hemoglobin 11.9 g/dL (12.0-15.0); Mean Corpuscular HGB Conc 32.1 g/dl (32-36); Mean Corpuscular Hemoglobin 30.3 pg (26-34); Mean Corpuscular Volume 94.4 fl (80-100); Platelet Count Result 287 k/mm3 (150-375); Red Blood Count 3.93 M/mm3 (4.2-5.4); Red Cell Distribution Width 15.6 % (11.5-14.5); White Blood Count 6.7 K/mm3 (4.5-10.0)
[2023-07-12 06:29] LABS: Alanine Aminotransferase 19 U/L (6-35); Albumin Level 2.1 g/dL (3.5-5.1); Alkaline Phosphatase 63 U/L (38-126); Anion Gap 2 mmol/L (8-16); Aspartate Amino Transferase 32 U/L (14-36); Bilirubin,Total 0.5 mg/dL (0.2-1.3); Blood Urea Nitrogen 4 mg/dL (7-17); Calcium 7.5 mg/dL (8.4-10.2); Carbon Dioxide 23 mmol/L (22-30); Chloride 109 mmol/L (98-107); Estimated CRCL calculation 60 ml/min; Estimated Glomerular Filt Rate > 60; Glucose 75 mg/dL (65-110); Potassium 3.6 mmol/L (3.4-5.0); Sodium 134 mmol/L (137-145)
--- NOTE | 2023-07-12 10:49 | PCSTNOTE ---
Please refer to the Modified Barium Swallow Evaluation in the EMR.
[2023-07-12] MEDS: VITAMIN B COMPLEX/VIT C CAPSULE 1 EACH PO (13:01)
[2023-07-12] MEDS: PRAVASTATIN SODIUM 20 MG TABLET 80 MG PO (13:01)
[2023-07-12] MEDS: CARBIDOPA/LEVODOPA 25/100 MG TABLET 1 TABLET PO ×2 (13:01→17:25)
[2023-07-12] MEDS: CALCIUM CARBONATE (OSCAL) 500 MG TABLET PO (13:01)
[2023-07-12] MEDS: ASCORBIC ACID 500 MG TABLET PO (13:02)
[2023-07-12] MEDS: FENOFIBRATE,MICRONIZED 48 MG TABLET PO (13:02)
[2023-07-12] MEDS: FOLIC ACID 1 MG TABLET PO (13:02)
[2023-07-12] MEDS: PANTOPRAZOLE SODIUM IV 40 MG VIAL IV PUSH (13:03)
[2023-07-12] MEDS: TOLNAFTATE 1% POWDER 45 GM BTL 1 APPLIC TOPICAL ×2 (13:03→20:41)
[2023-07-12] MEDS: polyethylene glycoL 3350 17 GM POWD.PACK PO (13:32)
--- NOTE | 2023-07-12 13:33 | PM.IMPN ---
Progress Note: A&P Assessment and Plan (1) Acute UTI: Code(s): N39.0 - Urinary tract infection, site not specified Status: Acute Assessment and Plan: 5 days of IV antibiotics will be finished tomorrow. (2) AMS (altered mental status): Code(s): R41.82 - Altered mental status, unspecified Status: Acute Assessment and Plan: CT head is negative. Will treat UTI and monitor closely. Mental status appears to be waxing and waning and when she is asleep her mouth is wide open. - MRI just shows chronic microvascular changes, no evidence of acute stroke on 07/12 (3) Gastric ulcer: Code(s): K25.9 - Gastric ulcer, unspecified as acute or chronic, without hemorrhage or perforation Status: Acute Assessment and Plan: Continue with H2 blockers and monitor hemoglobin. (4) Hyponatremia: Code(s): E87.1 - Hypo-osmolality and hyponatremia Status: Acute Assessment and Plan: Will give IV fluids and monitor sodium closely. (5) Parkinson disease: Code(s): G20 - Parkinson's disease Status: Acute Assessment and Plan: Stable on current meds, will continue current treatment (6) Long-term (current) use of anticoagulants, INR goal 2.0-3.0: Code(s): Z79.01 - [facility] (current) use of anticoagulants Status: Acute Assessment and Plan: INR at goal. Continue warfarin Time Spent With Patient Time with patient: 25 - 35 minutes Subjective Date/time seen: 07/12/23 13:33 Interval history: Patient here for altered mental status in the setting of UTI. Noted to have difficulty swallowing food fluids and medications. Ordered bed side swallow study by speech therapy yesterday which was inconclusive modified barium swallow ordered for today, pH therapy recommending pureed diet with moderately thickened liquids and crushed medications with pudding or applesauce. Medication list reviewed and meds that cannot be crushed were substituted. Patient continues to have altered mental status, concern for ability to take in adequate nutrition and fluids related to this. Continue IV fluids. Review of Systems Review of Systems: All systems reviewed & are unremarkable except as noted in HPI and below (the history and physical exam) ROS unobtainable: Yes unobtainable due to mental status Exam Narrative: APPEARANCE: Chronically ill-appearing, altered level of consciousness HEAD: normocephalic, atraumatic. EYES: PERRLA/EOMI, conjunctivae clear. NOSE: Normal no drainage THROAT: Pharynx clear, no exudate. NECK: Supple. No adenopathy, no masses. RESPIRATORY: Airway patent, respirations nonlabored. Clear to auscultation bilaterally, no rales, rhonchi, wheezing. CARDIOVASCULAR: Sinus tachycardia ABDOMINAL: Soft, nontender, nondistended, normal bowel sounds MUSCULOSKELETAL: Moves all extremities. Strength/ROM intact, No edema, No calf tenderness. Does not walk. Mild tremors NEURO: Cranial nerves II through XII intact. response to voice follows commands, generalized weakness noted, no focal neuro deficit but patient was having some leaking fluid from the right side of mouth during speech evaluation SKIN: Warm, dry. Normal Color Objective Data Vital Signs Vital Signs: Vital Signs - 24 hr 07/11/23 19:58 07/11/23 20:00 07/12/23 06:00 Temperature 36.4 C L 36.3 C L Pulse Rate 86 92 Respiratory Rate 18 18 Blood Pressure 133/68 139/83 Pulse Oximetry 97 90 Oxygen Delivery Room Air Intake/Output Intake/Output: Intake & Output 07/09/23 07/10/23 07/11/23 07/12/23 23:59 23:59 23:59 23:59 Intake Total 2510 2610 3410 Output Total 0 300 1910 350 Balance 2510 2310 1500 -350 Meds/Results Medications: Active Medications Generic Name Dose Route Start Last Admin Trade Name Freq PRN Reason Stop Dose Admin Acetaminophen 650 mg 07/09/23 10:45 07/09/23 14:35 Acetaminophen 325 Mg Tablet PO 650 mg Q6H PRN Administration Pain
[2023-07-12 13:59] VITALS: BP 104/43; PULSE 101; RESP 14; TEMP 35.8; O2SAT 93
[2023-07-12] MEDS: SALINE LOCK FLUSH 10 ML IV PUSH ×2 (17:21→20:41)
[2023-07-12] MEDS: WARFARIN (*PBKC) 1 MG TABLET PO (17:25)
[2023-07-12] MEDS: FERROUS SULFATE LIQUID 325 MG/7.4 ML ELIXIR PO (17:34)
[2023-07-12 20:40] VITALS: PULSE 54
[2023-07-12] MEDS: MELATONIN 5 MG TABLET PO (20:40)
[2023-07-12] MEDS: METOPROLOL TARTRATE 12.5 MG TABLET PO (20:40)
[2023-07-12 20:46] VITALS: BP 123/83; PULSE 54; RESP 14; TEMP 35.9; O2SAT 91
[2023-07-13] MEDS: SODIUM CHLORIDE 0.9% IV 1,000 ML 100 ML IV CONT (03:23)
[2023-07-13] MEDS: SALINE LOCK FLUSH 10 ML IV PUSH ×2 (05:25→12:32)
[2023-07-13 06:00] VITALS: BP 130/83; PULSE 71; RESP 14; TEMP 35.9; O2SAT 90
[2023-07-13 07:28] LABS: Hematocrit 40.5 % (37.0-47.0); Hemoglobin 12.3 g/dL (12.0-15.0); Mean Corpuscular HGB Conc 30.4 g/dl (32-36); Mean Corpuscular Hemoglobin 30.6 pg (26-34); Mean Corpuscular Volume 100.7 fl (80-100); Mean Platelet Volume 9.2 fl (7.4-10.4); Platelet Count Result 260 k/mm3 (150-375); Red Blood Count 4.02 M/mm3 (4.2-5.4); Red Cell Distribution Width 16.1 % (11.5-14.5); White Blood Count 7.8 K/mm3 (4.5-10.0)
[2023-07-13 07:46] LABS: Alanine Aminotransferase 12 U/L (6-35); Albumin Level 2.2 g/dL (3.5-5.1); Alkaline Phosphatase 59 U/L (38-126); Anion Gap 6 mmol/L (8-16); Aspartate Amino Transferase 47 U/L (14-36); Bilirubin,Total 0.5 mg/dL (0.2-1.3); Blood Urea Nitrogen 3 mg/dL (7-17); Calcium 7.5 mg/dL (8.4-10.2); Carbon Dioxide 17 mmol/L (22-30); Chloride 111 mmol/L (98-107); Estimated CRCL calculation 60 ml/min; Estimated Glomerular Filt Rate > 60; Glucose 58 mg/dL (65-110); Potassium 4.1 mmol/L (3.4-5.0); Sodium 134 mmol/L (137-145)
[2023-07-13] MEDS: VITAMIN B COMPLEX/VIT C CAPSULE 1 EACH PO (08:27)
[2023-07-13] MEDS: PRAVASTATIN SODIUM 20 MG TABLET 80 MG PO (08:27)
[2023-07-13] MEDS: FOLIC ACID 1 MG TABLET PO (08:27)
[2023-07-13] MEDS: CARBIDOPA/LEVODOPA 25/100 MG TABLET 1 TABLET PO ×2 (08:27→12:32)
[2023-07-13 08:28] VITALS: PULSE 72
[2023-07-13] MEDS: METOPROLOL TARTRATE 12.5 MG TABLET PO (08:28)
[2023-07-13] MEDS: CALCIUM CARBONATE (OSCAL) 500 MG TABLET PO (08:28)
[2023-07-13] MEDS: ASCORBIC ACID 500 MG TABLET PO (08:28)
[2023-07-13] MEDS: FENOFIBRATE,MICRONIZED 48 MG TABLET PO (08:31)
[2023-07-13] MEDS: PANTOPRAZOLE SODIUM IV 40 MG VIAL IV PUSH (08:32)
[2023-07-13] MEDS: TOLNAFTATE 1% POWDER 45 GM BTL 1 APPLIC TOPICAL (08:32)
[2023-07-13] MEDS: polyethylene glycoL 3350 17 GM POWD.PACK PO (08:32)
[2023-07-13] MEDS: FERROUS SULFATE LIQUID 325 MG/7.4 ML ELIXIR PO (08:32)
[2023-07-13 08:35] LABS: Glucose Point of Care 88 mg/dl (65-105)
[2023-07-13 09:05] LABS: INR 2.5; Prothrombin Time 28.6 Seconds (11.1-14.7)
[2023-07-13] MEDS: DEXTROSE 5%/LACTATED RINGERS 1,000 ML 100 ML IV CONT (12:32)
--- NOTE | 2023-07-13 12:47 | PM.DS ---
DS: Admitting Diagnosis Discharge Date 07/13/2023 Admitting Diagnosis Acute UTI, AMS, gastric ulcer, hyponatremia, Parkinson's disease, long-term use of anticoagulants DS: Discharge Diagnosis Discharge Diagnosis (1) Acute UTI: Code(s): N39.0 - Urinary tract infection, site not specified Status: Acute (2) AMS (altered mental status): Code(s): R41.82 - Altered mental status, unspecified Status: Acute (3) Gastric ulcer: Code(s): K25.9 - Gastric ulcer, unspecified as acute or chronic, without hemorrhage or perforation Status: Acute (4) Hyponatremia: Code(s): E87.1 - Hypo-osmolality and hyponatremia Status: Acute (5) Parkinson disease: Code(s): G20 - Parkinson's disease Status: Acute (6) Long-term (current) use of anticoagulants, INR goal 2.0-3.0: Code(s): Z79.01 - [facility] (current) use of anticoagulants Status: Acute (7) Dysphagia: Code(s): R13.10 - Dysphagia, unspecified Status: Acute (8) Small vessel disease, cerebrovascular: Code(s): I67.9 - Cerebrovascular disease, unspecified Status: Acute DS: Summary Hospital Course Reason for hospitalization: Patient was admitted to the hospital due to altered level of consciousness and urinary tract infection. Hospital Course: Patient was treated with IV antibiotics for urinary tract infection. However, her altered level of consciousness did not really improve. Patient sleeps the majority of the day he is arousable to voice or pain and will speak a little bit and then fall back asleep. Nursing staff noted the patient was choking on medication. She was made NPO and bedside swallow study to with speech therapy was completed. This was inconclusive some modified barium swallow was completed and speech therapy recommended pureed diet with honey thick liquids. Patient has had very poor oral intake of food or fluids throughout hospitalization. I spoke with patient's power of health care attorney her niece from [place] and advised her that the patient was not really improving despite treating her urinary tract infection. We discussed possibility of feeding tube placement versus hospice verses attempting to keep hydrated with IV fluids at this time. Patient's niece called [facility] and has decided that patient would be better off going back to [facility] where staff knows her well. She feels that getting her back in her familiar environment will lead to better oral intake. If necessary, hospice can be consulted through [facility]. Discussed this plan with community case manager who agreed to arrange for transfer back to [facility]. This morning patient was hypoglycemic was able to be aroused enough to drink honey thickened orange juice which improved her glucose. Status at Discharge Cognitive/behavioral status at discharge: Arouses to voice, falls asleep easily thereafter Functional status at discharge: wheelchair bound Overall status at discharge: patient is not back to baseline Time Spent with Patient Time attestation: Total time spent providing and/or coordinating discharge services: 65 minutes Time spent: Greater than 30 minutes Specific discharge activities: Multiple phone conversations with patient's POA Exam Narrative: APPEARANCE: Chronically ill-appearing, altered level of consciousness HEAD: normocephalic, atraumatic. EYES: PERRLA/EOMI, conjunctivae clear. NOSE: Normal no drainage THROAT: Pharynx clear, no exudate. NECK: Supple. No adenopathy, no masses. RESPIRATORY: Airway patent, respirations nonlabored. Clear to auscultation bilaterally, no rales, rhonchi, wheezing. CARDIOVASCULAR: Sinus tachycardia ABDOMINAL: Soft, nontender, nondistended, normal bowel sounds MUSCULOSKELETAL: Moves all extremities. Strength/ROM intact, No edema, No calf tenderness. Does not walk. Mild tremors NEURO: Cranial nerves II through XII intact. response to voice follows commands, generalized
[2023-07-13 14:00] VITALS: BP 128/78; PULSE 70; RESP 15; TEMP 36.4; O2SAT 91
[2023-07-13] MEDS: NEOMYCIN/POLYMYXIN/BACITRACIN OINTMENT PACKET 1 PACKET (15:25)
[2023-07-13 15:39] LABS: SARS-CoV-2 RNA PCR Negative (Negative)
== END 2023-07-13 18:35 | DRG 690 ==
LOC: ANHED 19:16 → ANH2MED 20:06
PROVIDERS: Hospitalist; Internal Medicine; Admitting Provider Chiropractor; Emergency Provider Emergency Medicine; PCP Family Medicine; Visit Provider Nurse Practitioner
DX: N39.0 Urinary tract infection, site not specified (principal); E87.1 Hypo-osmolality and hyponatremia; K25.9 Gastric ulcer, unspecified as acute or chronic, without hemorrhage or perforation; G20 Parkinson's disease; R13.10 Dysphagia, unspecified; E16.2 Hypoglycemia, unspecified; T17.998A Other foreign object in respiratory tract, part unspecified causing other injury, initial encounter; Z20.822 Contact with and (suspected) exposure to COVID-19; Z79.01 Long term (current) use of anticoagulants
CPT/HCPCS: 36415; 36569; 70450; 70551; 80053; 81001; 82948; 83605; 85025; 85027; 85610; 85730; 87040; 87086; 87088; 87635; 87637; 92610; 92611; 93005; 96361; 96365; 96376; 99285; A9270; C1751; C9113; G0378; J0696; J7030; J7121